=== PATIENT | female | born 1950 | race Caucasian/White ===

== ENCOUNTER 2020-06-03 12:13 | Emergency (ER) | payer MEDICARE, MEDICAID ==
[~2020-06-03] VITALS: Ht 162.6 cm; Wt 90.0 kg
[~2020-06-03 12:13] MED LIST: AMPH10TA23 PO; PANT-47 PO; THYR30TA2 PO; ZOLP5TAB8 PO
[2020-06-03] MEDS ORDERED: acetaminophen 325mg tablet PO ONE (12:20)
[2020-06-03] MEDS ORDERED: TRAM50TA2 PO (12:47)
[2020-06-03 13:46] VITALS: BP 136/49
== END 2020-06-03 13:47 | disposition home or self-care (01) ==
LOC: ER 12:14
DX: S42.224A 2-part nondisplaced fracture of surgical neck of right humerus, initial encounter for closed fracture (principal); S42.254A Nondisplaced fracture of greater tuberosity of right humerus, initial encounter for closed fracture; M25.511 Pain in right shoulder; Z87.11 Personal history of peptic ulcer disease; Z90.49 Acquired absence of other specified parts of digestive tract; Z90.710 Acquired absence of both cervix and uterus; Z79.899 Other long term (current) drug therapy; W19.XXXA Unspecified fall, initial encounter; Y93.89 Activity, other specified; Y92.89 Other specified places as the place of occurrence of the external cause; Y99.8 Other external cause status
CPT/HCPCS: 29105; 73030; 73630; 99284

== ENCOUNTER 2020-11-02 17:25 | Inpatient (IN) | payer MEDICARE, MEDICAID ==
[~2020-11-02] VITALS: Ht 170.2 cm; Wt 110.0 kg
[2020-11-02] MEDS ORDERED: ondansetron 4mg rapidly disintigrating tab PO ONE (18:25)
[2020-11-02 21:57] LABS: BASOPHILS # (AUTO) 0.2 X10'3 (0-0.2); BASOPHILS % (AUTO) 0.9 % (0-1); EOSINOPHILS % (AUTO) 0.2 % (0-6); HEMOGLOBIN 15.2 g/dl (12.0-16.0); LYMPHOCYTES # (AUTO) 1.1 X10'3 (1.1-4.8); LYMPHOCYTES % (AUTO) 6.6 % (21-51); MEAN CORPUSCULAR HEMOGLOBIN 29.5 PG (27.0-31.0); MEAN CORPUSCULAR HGB CONC 33.1 g/dL (33.0-36.5); MEAN CORPUSCULAR VOLUME 89.2 FL (78-98); MEAN PLATELET VOLUME 7.2 FL (7.4-10.4); MONOCYTES # (AUTO) 0.4 X10'3 (0-0.9); MONOCYTES % (AUTO) 2.7 % (2-12); NEUTROPHILS # (AUTO) 14.4 X10'3 (1.8-7.7); NEUTROPHILS % (AUTO) 89.6 % (42-75); PLATELET COUNT 277 X10'3 (140-440); RED BLOOD COUNT 5.15 X10'6 (4.20-5.60); WHITE BLOOD COUNT 16.1 X10'3 (4.5-11.0)
[2020-11-02 22:09] LABS: ALANINE AMINOTRANSFERASE 21 U/L (12-78); ALBUMIN 4.6 G/DL (3.4-5.0); ALBUMIN/GLOBULIN RATIO 1.2 (1.1-1.5); ALKALINE PHOSPHATASE 139 IU/L (46-116); ANION GAP 14 (8-16); ASPARTATE AMINO TRANSFERASE 16 U/L (10-37); BILIRUBIN,TOTAL 0.3 MG/DL (0.1-1.0); BLOOD UREA NITROGEN 18 MG/DL (7-18); BUN/CREATININE RATIO 15.9 (6.6-38.0); CALCIUM 9.8 MG/DL (8.5-10.1); CHLORIDE 98 MMOL/L (99-107); CREATININE 1.13 MG/DL (0.40-0.90); GLUCOSE 205 MG/DL (70-104); LIPASE 73 U/L (73-393); POTASSIUM 4.1 MMOL/L (3.5-5.1); SODIUM 137 MMOL/L (135-145); TOTAL CARBON DIOXIDE 24.8 MMOL/L (24-32); TOTAL PROTEIN 8.4 G/DL (6.4-8.2); eGFR 48 ML/MIN
[2020-11-02 23:04] LABS: CLARITY,URINE CLEAR (Clear); COLOR,URINE YELLOW (Yellow); GLUCOSE, URINE 100 mg/dl (Neg); KETONES,URINE 15 mg/dl (Neg); LEUKOCYTE ESTERASE ,URINE NEGATIVE (Neg); NITRITES, URINE NEGATIVE (Neg); OCCULT BLOOD,URINE NEGATIVE (Neg); PROTEIN,URINE 100 mg/dl (Neg); UROBILINOGEN,URINE 0.2 E.U/dL (0.2-1.0)
[2020-11-02 23:05] LABS: UA COLLECTION TYPE CLN CATCH MIDSTREAM
[2020-11-02 23:12] LABS: MUCUS STRANDS MANY /LPF (Neg); SQUAMOUS EPITHELIAL CELL,UR FEW /LPF (FEW)
[2020-11-02 23:13] LABS: BACTERIA,URINE NONE SEEN /HPF (Neg); HYALINE CASTS >30 /LPF (NEGATIVE); RBC,URINE NONE SEEN /HPF (0-2); WBC,URINE 0-4 /HPF (0-4)
[2020-11-02 23:20] LABS: PLATELET ESTIMATE NORMAL; TOTAL CELLS COUNTED 100
[2020-11-02] MEDS ORDERED: morphine 2 MG/ML inj. syringe IV PRN (23:35)
[2020-11-02] MEDS ORDERED: ondansetron/PF 4mg/2ml inj IV ONE (23:35)
[2020-11-02] MEDS ORDERED: piperacillin/tazo 3.375gm/50ml 50 ML IV ONE (23:35)
[2020-11-02] MEDS ORDERED: morphine 4 MG/ML inj SYRINge IV ONE (23:35)
[2020-11-02] MEDS ORDERED: normal saline 1000ML IV soln IV ONE (23:35)
[2020-11-03] VITALS (16 sets, daily range): BP systolic 101–134; BP diastolic 41–71
[2020-11-03 00:36] LABS: MAGNESIUM 2.1 MG/DL (1.5-2.4)
[2020-11-03 00:38] LABS: PARTIAL THROMBOPLASTIN TIME 25 SECONDS (22-32)
[2020-11-03] MEDS ORDERED: normal saline 1000ML IV soln IVB ONE (01:05)
[2020-11-03] MEDS ORDERED: ZOLP10TA (01:09)
[2020-11-03] MEDS ORDERED: ZOLP10TA PO (01:09)
[2020-11-03] MEDS ORDERED: BEPO10DR EACHEYE (01:09)
[2020-11-03] MEDS ORDERED: VORT20TA PO (01:09)
--- NOTE | 2020-11-03 01:11 | NUR ---
pt refused to get changed into hospital gown. pt requests to wear own clothes for the night and change into gown right before surgery.
[2020-11-03] MEDS ORDERED: acetaminophen 650mg rectal suppository RC PRN (01:15)
[2020-11-03] MEDS ORDERED: HYDROcodone/acetaminophen 5mg/325mg tablet PO PRN (01:15)
[2020-11-03] MEDS ORDERED: ondansetron 4mg rapidly disintigrating tab PO PRN (01:15)
[2020-11-03] MEDS ORDERED: diphenhydrAMINE 25mg capsule PO PRN (01:15)
[2020-11-03] MEDS ORDERED: bisacodyl 10mg suppository rectal RC PRN (01:15)
[2020-11-03] MEDS ORDERED: acetaminophen 325mg tablet PO PRN ×2 (01:15)
[2020-11-03] MEDS ORDERED: diphenhydrAMINE 50 mg/ml inj IV PRN (01:15)
[2020-11-03] MEDS ORDERED: morphine 2 MG/ML inj. syringe IV PRN ×3 (01:15→09:20)
[2020-11-03] MEDS ORDERED: ondansetron/PF 4mg/2ml inj IV PRN ×2 (01:15→09:20)
[2020-11-03] MEDS ORDERED: magnesium hydroxide 30ml (MOM) UD suspension PO PRN (01:15)
[2020-11-03] MEDS ORDERED: HYDROcodone/acetaminophen 10/325mg tab PO PRN (01:15)
[2020-11-03] MEDS ORDERED: mag hydrox/Alum hydrox/simeth 30ml oral suspension PO PRN (01:15)
[2020-11-03] MEDS ORDERED: LEVO15TA6 PO (01:36)
[2020-11-03] MEDS ORDERED: LAMO25TA5 PO (01:36)
[2020-11-03] MEDS ORDERED: LEVO100T PO (01:36)
[2020-11-03] MEDS ORDERED: LIOT5TAB10 PO (01:36)
[2020-11-03] MEDS ORDERED: BREX1TAB PO (01:36)
[2020-11-03 02:20] LABS: HEMOGLOBIN A1C 5.5 % (4.5-6.2)
[2020-11-03] MEDS: normal saline 1000ml 1,000 ML IV SCH ×3 (02:54→19:23)
[2020-11-03 05:55] LABS: URINE AMPHETAMINE SCREEN NEGATIVE (Neg); URINE BARBITUATE SCREEN NEGATIVE (Neg); URINE BENZODIAZEPINES SCREEN NEGATIVE (Neg); URINE CANNABINOID SCREEN NEGATIVE (Neg); URINE COCAINE SCREEN NEGATIVE (Neg); URINE METHADONE SCREEN NEGATIVE (Neg); URINE OPIATE SCREEN NEGATIVE (Neg); URINE PHENCYCLIDINE SCREEN NEGATIVE (Neg)
[2020-11-03] MEDS: ipratropium/albuterol 3ml nebule NEB SCH ×4 (06:52→23:03)
[2020-11-03] MEDS: BEPOTASTINE EACHEYE SCH ×2 (06:53→19:37)
[2020-11-03] MEDS: docusate sod 100mg capsule PO SCH ×2 (06:54→19:37)
[2020-11-03] MEDS: lamoTRIgine 25mg tablet PO SCH (06:55)
[2020-11-03] MEDS: liothyronine sod 5mcg tablet PO SCH (06:55)
[2020-11-03] MEDS: LEVOMEFOLATE 15 MG PO SCH (06:56)
[2020-11-03] MEDS: levoTHYROXINE 100mcg tablet PO SCH (06:56)
[2020-11-03] MEDS: pantoprazole 40 MG vial IV SCH (07:03)
[2020-11-03] MEDS ORDERED: voritoxetine HBr tablet 10 MG TABLET PO SCH (08:00)
[2020-11-03] MEDS ORDERED: sevoflurane 250ml liquid IH ONE (08:45)
[2020-11-03] MEDS ORDERED: famotidine/PF 10 mg/ml inj IV ONE (08:54)
[2020-11-03] MEDS ORDERED: midazolam 1 mg/ML 2ml injection ONE (08:56)
[2020-11-03] MEDS ORDERED: fentaNYL /PF 50mcg/ml 5ml ampule ONE (09:03)
[2020-11-03] MEDS ORDERED: labetalol 20mg/4ml (5mg/ml) syringe IV PRN (09:20)
[2020-11-03] MEDS ORDERED: proCHLORperazine 10 MG/2 ml inj IV PRN (09:20)
[2020-11-03] MEDS ORDERED: acetaminophen 1,000mg/100ml IV 100 ML IV PRN (09:20)
[2020-11-03] MEDS ORDERED: ringers solution, lacted 1,000 ML IV SCH (09:20)
[2020-11-03] MEDS ORDERED: HYDROmorphone/PF 0.2 MG/ML SYRINGE IV PRN ×2 (09:20)
[2020-11-03] MEDS ORDERED: meperidine/PF 25mg/ml syringe IV PRN (09:20)
[2020-11-03] MEDS ORDERED: morphine 4 MG/ML inj SYRINge IV PRN (09:20)
[2020-11-03] MEDS ORDERED: hydrALAZINE 20mg/ml inj. IV PRN (09:20)
[2020-11-03] MEDS ORDERED: LIDOcaine 2% (20mg/ml) 5ml vial ONE (09:28)
[2020-11-03] MEDS ORDERED: propofol inj 20 ML IV ONE (09:29)
[2020-11-03] MEDS ORDERED: rocuronium 10mg/ml inj IV ONE (09:29)
[2020-11-03] MEDS ORDERED: sugammadex 200mg/2ml injection IV ONE (09:41)
[2020-11-03] MEDS ORDERED: dexamethasone sod phosphate 4mg/ml inj. ONE (09:55)
[2020-11-03] MEDS ORDERED: ondansetron/PF 4mg/2ml inj ONE (09:55)
--- NOTE | 2020-11-03 10:05 | NUR ---
Received from OR via bed, accompanied by Anesthesiologist jenelle and report given by Anesthesiolgist. pt drowsy, oxygenating well on 10 lpm o2 via mask, no resp distress noted. denies pain or nausea, ngt to santino ray. fc patent, scds on. vss.
[2020-11-03] MEDS ORDERED: potassium Cl 40MEQ/1/2NS 520ml 520 ML IV PRN (10:10)
[2020-11-03] MEDS ORDERED: magnesium Cl slow-release 64mg tablet PO PRN (10:10)
[2020-11-03] MEDS ORDERED: magnesium 4gm in 100ml NS 100 ML IV PRN (10:10)
[2020-11-03] MEDS ORDERED: potassium Cl 20 mEq SR tablet PO PRN ×2 (10:10)
--- NOTE | 2020-11-03 11:00 | NUR ---
reported bloody ng output to dr rhodes, orders recd. ngt placemenent was confirmed.
--- NOTE | 2020-11-03 11:10 | NUR ---
RECEIVED REPORT FROM LUZ STAPLETON FROM RECOVERY
--- NOTE | 2020-11-03 11:15 | NUR ---
Report called to receiving nurse. Transferred via bed Belongings with pt, 1 bag of clothing. vss. pt continues to deny any pain. no nausea, ngt to cont low wall sx. transferred to ortho in stable condition. Special Issues communicated to receiving nurse.
[2020-11-03] MEDS: piperacillin/tazo 4.5gm/100ml 100 ML IV SCH ×2 (11:52→19:23)
[2020-11-03] MEDS: voritoxetine HBr tablet 5 MG TABLET PO SCH (11:52)
--- NOTE | 2020-11-03 18:43 | NUR ---
GAVE REPORT TO LUZ NOONAN
[2020-11-03] MEDS: HYDROmorphone inj. 0.5 MG/0.5 ML DISP.SYRIN IV PRN ×2 (19:28→23:46)
[2020-11-03] MEDS: K and/or MAG REPLACEMENT MC SCH (19:37)
[2020-11-03] MEDS: lactobacillus rhamnosus 10,000 MMU CELLS/CAPSULE PO SCH (19:37)
[2020-11-03] MEDS ORDERED: non-formulary drug (Zolpidem Tartrate (Ambien) 1 TAB) PO SCH (21:00)
[2020-11-03] MEDS ORDERED: temazepam 15mg capsule PO PRN (21:00)
[2020-11-04 01:00] VITALS: BP 136/60
[2020-11-04] MEDS: ipratropium/albuterol 3ml nebule NEB SCH ×3 (02:00→14:44)
[2020-11-04 06:23] LABS: BASOPHILS % (AUTO) 0.2 % (0-1); EOSINOPHILS % (AUTO) 0.4 % (0-6); HEMATOCRIT 35.8 % (35.0-45.0); LYMPHOCYTES % (AUTO) 29.9 % (21-51); MEAN CORPUSCULAR HGB CONC 33.6 g/dL (33.0-36.5); MEAN CORPUSCULAR VOLUME 89.4 FL (78-98); MONOCYTES # (AUTO) 0.7 X10'3 (0-0.9); MONOCYTES % (AUTO) 6.5 % (2-12); NEUTROPHILS # (AUTO) 6.4 X10'3 (1.8-7.7); PLATELET COUNT 186 X10'3 (140-440); RED CELL DISTRIBUTION WIDTH 14.2 % (11.5-14.5); WHITE BLOOD COUNT 10.2 X10'3 (4.5-11.0)
[2020-11-04 06:48] LABS: ALANINE AMINOTRANSFERASE 21 U/L (12-78); ALBUMIN 2.9 G/DL (3.4-5.0); ALBUMIN/GLOBULIN RATIO 1.1 (1.1-1.5); ALKALINE PHOSPHATASE 89 IU/L (46-116); ANION GAP 8 (8-16); ASPARTATE AMINO TRANSFERASE 17 U/L (10-37); BILIRUBIN,TOTAL 0.3 MG/DL (0.1-1.0); BLOOD UREA NITROGEN 11 MG/DL (7-18); BUN/CREATININE RATIO 14.3 (6.6-38.0); CALCIUM 8.1 MG/DL (8.5-10.1); CHLORIDE 111 MMOL/L (99-107); CREATININE 0.77 MG/DL (0.40-0.90); GLUCOSE 90 MG/DL (70-104); MAGNESIUM 2.1 MG/DL (1.5-2.4); POTASSIUM 3.8 MMOL/L (3.5-5.1); SODIUM 144 MMOL/L (135-145); TOTAL CARBON DIOXIDE 25.4 MMOL/L (24-32); TOTAL PROTEIN 5.6 G/DL (6.4-8.2); eGFR 74 ML/MIN
--- NOTE | 2020-11-04 06:56 | NUR ---
Patient in room ORTHO 4014B. I have received report from LUZ NOONAN and had the opportunity to ask questions and assume patient care.
[2020-11-04] MEDS: piperacillin/tazo 4.5gm/100ml 100 ML IV SCH (07:12)
[2020-11-04] MEDS: HYDROmorphone inj. 0.5 MG/0.5 ML DISP.SYRIN IV PRN (07:12)
[2020-11-04] MEDS: BEPOTASTINE EACHEYE SCH (08:00)
[2020-11-04] MEDS: levoTHYROXINE 100mcg tablet PO SCH (08:00)
[2020-11-04] MEDS: liothyronine sod 5mcg tablet PO SCH (08:00)
[2020-11-04] MEDS: voritoxetine HBr tablet 5 MG TABLET PO SCH (08:00)
[2020-11-04] MEDS: K and/or MAG REPLACEMENT MC SCH (08:00)
[2020-11-04] MEDS: lactobacillus rhamnosus 10,000 MMU CELLS/CAPSULE PO SCH (08:00)
[2020-11-04] MEDS: lamoTRIgine 25mg tablet PO SCH (08:00)
[2020-11-04] MEDS: docusate sod 100mg capsule PO SCH (08:00)
[2020-11-04] MEDS: LEVOMEFOLATE 15 MG PO SCH (08:00)
[2020-11-04] MEDS: normal saline 1000ml 1,000 ML IV SCH (09:42)
[2020-11-04] MEDS: pantoprazole 40 MG vial IV SCH (09:47)
[2020-11-04 10:00] VITALS: BP 119/55
--- NOTE | 2020-11-04 12:48 | NUR ---
DR. PLATT CONSULTED WITH PT, TOLD HER SHE COULD HAVE TINOCO AND NG REMOVED. RN REMOVED TINOCO AND NG WITH NO COMPLICATIONS. SHE IS NOW ON CLEAR LIQUIDS
--- NOTE | 2020-11-04 13:30 | NUR ---
GAVE REPORT TO LUZ SPENCER ON TELE. PT GOING TO ROOM 9057F
--- NOTE | 2020-11-04 15:22 | NUR ---
PT NOT GOING TO TELE NOW, GAVE REPORT TO LUZ MARTINO ON SURGICAL, PT GOING TO 360A
--- NOTE | 2020-11-04 16:16 | NUR ---
PAGER ID: [phone] MESSAGE: Surgical Gurwinder ESCOBAR ext [phone]. RE: Yoselyn Ceja. Patient eagerly wants to go home fredrick. She said she was already given clear liquid and tolerated it. She said she has BM already and passing gas.
[2020-11-04] MEDS ORDERED: HYDR-3965 PO (16:23)
[2020-11-04] MEDS ORDERED: AMOX-419 PO (16:23)
[2020-11-04] MEDS ORDERED: LACT1CAP26 PO (16:23)
--- NOTE | 2020-11-04 16:31 | NUR ---
I called Dr. Juarez on his cellphone to confirm that he is okay for this patient to be discharge today, he said to me "Yes, she can go home!"
--- NOTE | 2020-11-04 17:15 | NUR ---
Patient was discharged home, discharge instructions given to patient. Patient verbalized understanding of all instructions made. Peripheral IV catheter removed, tip intact. Instructed patient to ensure she has all her belongings with her before leaving.
== END 2020-11-04 17:10 | disposition home or self-care (01) | DRG 335 ==
LOC: ER 17:25 → ED HOLD 11-03 01:11 → ORTHO 4S 11-03 11:30 → SUR 3N 11-04 15:30
PROVIDERS: ADMIT Family Medicine; ATTEND Family Medicine
PROC: 0D9670Z Drainage of Stomach with Drainage Device, Via Natural or Artificial Opening (ICD-10-PCS; 2020-11-03)
PROC: 0DN84ZZ Release Small Intestine, Percutaneous Endoscopic Approach (ICD-10-PCS; principal; 2020-11-03 08:49)
DX: K56.50 Intestinal adhesions [bands], unspecified as to partial versus complete obstruction (principal); J18.9 Pneumonia, unspecified organism; N17.9 Acute kidney failure, unspecified; E03.9 Hypothyroidism, unspecified; E86.0 Dehydration; R82.4 Acetonuria; E88.81 Metabolic syndrome and other insulin resistance; I10 Essential (primary) hypertension; K56.2 Volvulus; Z20.822 Contact with and (suspected) exposure to COVID-19; Z82.49 Family history of ischemic heart disease and other diseases of the circulatory system; Z87.11 Personal history of peptic ulcer disease; Z90.49 Acquired absence of other specified parts of digestive tract; Z90.710 Acquired absence of both cervix and uterus; Z88.2 Allergy status to sulfonamides; Z83.3 Family history of diabetes mellitus; Z82.3 Family history of stroke; Z84.89 Family history of other specified conditions; Z79.899 Other long term (current) drug therapy
CPT/HCPCS: 36415; 71045; 74176; 80053; 80305; 81001; 83036; 83605; 83690; 83735; 83880; 84100; 84145; 84443; 84484; 85007; 85025; 85610; 85730; 86885; 86900; 86901; 87040; 87081; 87635; 93005; 94640; 94760; 96365; 96375; 99285; A4618; A7000; C1758; C9113; C9399; C9803; G0378; J1100; J1170; J2001; J2250; J2270; J2405; J2543; J2704; J3010; J3490; J7030; J7120

== ENCOUNTER 2022-06-07 09:40 | Day surgery (SDC) | payer MEDICARE, MEDICAID ==
[2022-05-31 14:44] LABS: BASOPHILS % (AUTO) 0.5 % (0-1); EOSINOPHILS # (AUTO) 0.2 X10'3 (0-0.9); EOSINOPHILS % (AUTO) 2.2 % (0-6); LYMPHOCYTES # (AUTO) 2.8 X10'3 (1.1-4.8); LYMPHOCYTES % (AUTO) 38.1 % (21-51); MEAN CORPUSCULAR HEMOGLOBIN 30.2 PG (27.0-31.0); MEAN CORPUSCULAR HGB CONC 33.9 g/dL (33.0-36.5); MEAN PLATELET VOLUME 7.5 FL (7.4-10.4); MONOCYTES # (AUTO) 0.6 X10'3 (0-0.9); MONOCYTES % (AUTO) 8.7 % (2-12); NEUTROPHILS # (AUTO) 3.7 X10'3 (1.8-7.7); NEUTROPHILS % (AUTO) 50.5 % (42-75); PRE OP HEMATOCRIT 38.6 % (35.0-45.0); PRE OP HEMOGLOBIN 13.1 g/dL (12.0-16.0); PRE OP PLATELET COUNT 279 X10'3 (140-440); RED BLOOD COUNT 4.34 X10'6 (4.20-5.60); RED CELL DISTRIBUTION WIDTH 12.9 % (11.5-14.5)
[2022-05-31 14:52] LABS: PRE OP INR 0.9 INR; PRE OP PROTIME 10.2 SECONDS (9.0-12.0)
[2022-05-31 14:55] LABS: ALBUMIN 4.1 G/DL (3.4-5.0); ALBUMIN/GLOBULIN RATIO 1.2 (1.1-1.5); ALKALINE PHOSPHATASE 98 IU/L (46-116); BLOOD UREA NITROGEN 14 MG/DL (7-18); BUN/CREATININE RATIO 21.2 (10.0-20.0); CALCIUM 9.6 MG/DL (8.5-10.1); CHLORIDE 103 MMOL/L (99-107); CREATININE 0.66 MG/DL (0.40-0.90); PRE OP ALT 22 U/L (30-65); PRE OP ANION GAP 9 (8-16); PRE OP AST 19 U/L (10-37); PRE OP BILIRUB, TOTAL 0.4 MG/DL (0.0-1.0); PRE OP GLUCOSE 97 MG/DL (70-104); PRE OP POTASSIUM 4.3 MMOL/L (3.4-5.1); PRE OP SODIUM 138 MMOL/L (135-145); TOTAL CARBON DIOXIDE 26.2 MMOL/L (24-32); TOTAL PROTEIN 7.5 G/DL (6.4-8.2); eGFR 89 ML/MIN
[~2022-06-07] VITALS: Ht 162.6 cm; Wt 82.8 kg
[2022-06-07] VITALS (15 sets, daily range): BP systolic 124–151; BP diastolic 61–80
[~2022-06-07 09:40] MED LIST changes: -AMPH10TA23 PO; +BEMP180T PO; +BREX1TAB PO; +DUTA0.5C36 PO; +LAMO25TA5 PO; +LEVO100T PO; +LIOT5TAB10 PO; -PANT-47 PO; -THYR30TA2 PO; +VORT20TA PO; +ZOLP10TA PO; -ZOLP5TAB8 PO; +cefazolin 2gm/D5W 100mL 100 ML IV ONE; +famotidine 20mg tablet PO ONE; +ringers solution, lacted 1,000 ML IV SCH
[2022-06-07] MEDS ORDERED: BUPIVAcaine/PF 2.5 mg/ml (0.25%) 30ml vial ONE (10:49)
[2022-06-07] MEDS ORDERED: fentaNYL/PF 50MCG/1 ML 2ML syringe ONE ×2 (11:05→11:26)
[2022-06-07] MEDS ORDERED: midazolam 1 mg/ML 2ml injection ONE (11:07)
[2022-06-07] MEDS ORDERED: LIDOcaine 2% (20mg/ml) 5ml vial ONE (11:36)
[2022-06-07] MEDS ORDERED: propofol inj 20 ML IV ONE (11:36)
[2022-06-07] MEDS ORDERED: ondansetron/PF 4mg/2ml inj ONE (11:36)
[2022-06-07] MEDS ORDERED: dexamethasone sod phosphate 4mg/ml inj. ONE (11:36)
--- NOTE | 2022-06-07 12:03 | NUR ---
Received from OR via [facility] TO [facility] ROOM 5, accompanied by Anesthesiologist DR DAWSON and report given by Anesthesiolgist. PT PRESENTS WITH PIV 20G LEFT HAND, CHEST BINDER CDI, VSS. Addendum: 06/07/22 at 1221 by Patrica Agudelo RN, RN Amended: Links added.
[2022-06-07] MEDS ORDERED: morphine 2 MG/ML inj. syringe IV PRN (12:15)
[2022-06-07] MEDS ORDERED: ringers solution, lacted 1,000 ML IV SCH (12:15)
[2022-06-07] MEDS ORDERED: ondansetron/PF 4mg/2ml inj IV PRN (12:15)
[2022-06-07] MEDS ORDERED: morphine 4 MG/ML inj SYRINge IV PRN (12:15)
[2022-06-07] MEDS ORDERED: proCHLORperazine 10 MG/2 ml inj IV PRN (12:15)
[2022-06-07] MEDS ORDERED: meperidine/PF 25mg/ml syringe IV PRN ×3 (12:15)
[2022-06-07] MEDS ORDERED: oxyCODONE/APAP 5-325mg tablet PO ONE (12:55)
--- NOTE | 2022-06-07 14:23 | NUR ---
ALL DISCHARGE CRITERIA HAS BEEN MET. VSS, PAIN AT A TOLERABLE LEVEL, VOIDING AND ABLE TO SAFELY AMBULATE AND TRANSFER SELF. IV TAKEN OUT WITHOUT ANY COMPLICATIONS. ALL DISCHARGE INSTRUCTIONS COVERED WITH PATIENT AND ALL QUESTIONS ANSWERED. PATIENT TAKEN OUT VIA WHEELCHAIR TO PERSONAL VEHICLE WHERE FAMILY/FRIEND DROVE PATIENT HOME. Addendum: 06/07/22 at 1444 by Patrica Agudelo RN, RN Amended: Links added.
== END 2022-06-07 14:23 | disposition home or self-care (01) ==
LOC: PRE-OP 09:40
PROVIDERS: ATTEND Surgery
DX: C50.211 Malignant neoplasm of upper-inner quadrant of right female breast (principal); Z79.01 Long term (current) use of anticoagulants; Z79.899 Other long term (current) drug therapy; Z90.710 Acquired absence of both cervix and uterus; Z90.49 Acquired absence of other specified parts of digestive tract; Z98.890 Other specified postprocedural states; G47.30 Sleep apnea, unspecified; F32.A Depression, unspecified; E03.9 Hypothyroidism, unspecified; M17.9 Osteoarthritis of knee, unspecified; Z88.2 Allergy status to sulfonamides; E78.5 Hyperlipidemia, unspecified
CPT/HCPCS: 19301; 36415; 80053; 82948; 85025; 85610; 85730; J0690; J1100; J2175; J2250; J2405; J2704; J3010; J3490; J7030; J7120; Z7506; Z7512; 88307; 88341; 88342; A4215; A4618; A6449; A7000

== ENCOUNTER 2025-01-18 17:42 | Emergency (ER) | payer MEDICARE, MEDICAID ==
[~2025-01-18] VITALS: Ht 162.6 cm; Wt 86.7 kg
[~2025-01-18 17:42] MED LIST changes: +LAMO-24 PO; -LAMO25TA5 PO; +ZOLP-679 PO; -ZOLP10TA PO; -cefazolin 2gm/D5W 100mL 100 ML IV ONE; -famotidine 20mg tablet PO ONE; -ringers solution, lacted 1,000 ML IV SCH
--- NOTE | 2025-01-18 18:51 | RADIOLOGY REPORT ---
CLINICAL HISTORY: eye injury; left eye injury/poking TECHNIQUE: CT exam of the facial bones was performed without intravenous contrast. This exam was performed according to our departmental dose optimization program. Up-to-date CT equipment and radiation dose reduction techniques are utilized as appropriate. CTDI [ 54.5 mGy ] DLP [ 2003.8 mGy.cm ] COMPARISON: None FINDINGS: There is no acute displaced fracture. There is streak artifact referable to dental hardware obscuring evaluation of the lower face. There are bilateral lens implants. There is no proptosis or retrobulbar stranding. A single locule of gas is seen along the margin of the left globe. The soft tissues are unremarkable. Visualized intracranial components are unremarkable. A nonspecific sclerotic lesion is seen in the C6 vertebral body. IMPRESSION: 1. No acute displaced fracture. 2. A single locule gas is seen about the left orbit, correlation with ophthalmologic examination is suggested. No retrobulbar stranding or proptosis. 3. Nonspecific sclerotic lesion is seen within the C6 vertebral body, possibly reflecting a bone island, though clinical correlation is suggested to exclude metastatic disease.
[2025-01-18] MEDS: proparacaine 0.5% ophthalmic drops 15ml EACHEYE ONE (18:57)
[2025-01-18] MEDS: fluorescein sod 1mg ophthalmic strip EACHEYE ONE (18:58)
--- NOTE | 2025-01-18 19:37 | Physician Documentation ---
History of Present Illness ~ Chief Complaint: Eye Pain Stated Complaint: L EYE PAIN Time Seen by MD: 18:25 Primary Medical Doctor: ANA Mode of Arrival: POV HPI This is a very pleasant 74-year-old female who presents for evaluation of potential traumatic injury to her left eye. She states that she was not dollars general, trying on glasses when a plastic ford tag from the glasses hit her sq in the left eye causing an immediate onset pain, foreign body sensation and subsequent rapid development of a blood-filled a lesion on the lateral aspect of the eye. She has not been able to elicit any palliating or aggravating factors. Does not take blood thinners. Did not attempt to treat it and came straight to the emergency department. Normally sees Dr. Norris Clinton as her certification engineer. Denies any vision changes. No concern for tobacco, alcohol or illicit substances use Medication Reconciliation Allergies: Coded Allergies: Sulfa (Sulfonamide Antibiotics) (Verified Allergy, Severe, swelling, rash, 01/18/25) Scheduled Bempedoic Acid (Nexletol), 1 TAB PO DAILY, (Reported) Brexpiprazole (Rexulti), 0.5 TAB PO DAILY, (Reported) Dutasteride (Dutasteride), 1 CAP PO DAILY, (Reported) Lamotrigine (Lamotrigine), 3 TAB PO DAILY, (Reported) Levothyroxine Sodium (Synthroid), 1 TAB PO DAILY, (Reported) Liothyronine Sodium (Liothyronine Sodium), 1 TAB PO DAILY, (Reported) Vortioxetine Hydrobromide (Brintellix), 1 TAB PO DAILY, (Reported) Zolpidem Tartrate (Ambien), 1 TAB PO HS, (Reported) Past Medical History Past Medical History: Peptic Ulcer Disease, Thyroid (unspecified) Past Surgical History: cholecystectomy, hysterectomy Patient History: (CVA) Cerebrovascular accident GRANDFATHER OR GRANDMOTHER (Cancer) Malignant carcinoid tumor FATHER (AGE 86) (DM Type 2) Diabetes mellitus type 2 MOTHER (60 YR) (TIA) Transient ischemic attack MOTHER (86 YR) GRANDFATHER OR GRANDMOTHER (GRANDMOTHER ) Asthma FATHER (CHILDHOOD) No Family History of: (CABG) Coronary artery bypass grafting (CAD) Coronary arteriosclerosis (CHF) Congestive heart failure (COPD) Chronic obstructive lung disease (DM Type1) Diabetes mellitus type 1 ([place]) Myocardial infarction (PVD) Peripheral vascular disease Alzheimer's disease Aortic aneurysm Cardiac arrest Other Past Family History: [place] Alcohol Use: None Drug Use: none Lives In: Home Review of Systems ROS 10 point review of systems was performed and unless noted above in HPI is negative for acute process/complaint. Physical Exam Vital Signs: Temperature: 98.3, Source: Oral, Heart Rate: 76, Respiratory Rate: 18, BP: 158/65, Pulse Oximetry: 96, Weight: 86.700 Oxygen Flow Rate: 0 Physical Exam Physical examination: GENERAL: Awake, alert, oriented, GCS 15, no apparent distress, non-toxic appearing, answers questions, follows commands appropriately. Examined in bed 4. HEENT: Atraumatic, normocephalic, pupils equal, extraocular muscles intact Active gross movements, sclerae anicteric, mucus membranes moist, no stridor. NECK: Midline, no JVD CARDIOVASCULAR: Good skin perfusion without evidence of pallor, mottling. PULMONARY: Nonlabored, symmetric chest rise, no audible wheezing, no accessory muscle use, no respiratory distress, speaking in full sentences. GASTROINTESTINAL: Not distended. NEUROLOGIC: Lucid with normal mental status. Normal facial symmetry. Moves all extremities symmetrically and with purpose. No truncal ataxia. Speech is fluid without evidence of dysarthria or aphasia, no focal deficits appreciated. EXTREMITIES: Acute deformities Skin: warm, dry PSYCHIATRIC: Normal affect, normal insight, normal concentration. Focused exam: [Left eye examined. There is a large chemotic subconjunctival hemorrhage that takes up the entire lateral aspect of bulbar conjunctiva. It does not not cross limbus and there is no limbal involvement. Anterior chamber is clear, there is no hypopyon or hyphema. Extraocular range of motion intact. Eyelids were everted, there was no foreign body. Fluorescein examination notable for small area of uptake at 5:00 a.m. right at the edge of the iris. Negative Dorys sign. Visual acuity preserved.] Visual Acuity : Eye Location: Bilateral Vision Acuity Degree: 20/25 Correction: Uncorrected Progress Results/Orders Results/Orders Orders - GABE STOUT DO Ct Facial Bones/Soft Tissue (01/18/25 18:15) Completed Orders - GABE STOUT DO Proparacaine Ophth Solution (Alcaine Oph (01/18/25 18:15) Fluorescein 1mg Ophthal Strip (Ful-Denisse O (01/18/25 18:15) Ct Facial Bones/Soft Tissue (01/18/25 18:15) Medications Received in ER Medications (Trade) Dose Ordered Sig/Lauren Route PRN Reason Start Time Stop Time Status Last Admin Dose Admin (Alcaine ophth solution) 2 drop ONCE ONCE EACHEYE 01/18/25 18:15 01/18/25 18:17 DC 01/18/25 18:57 2 DROP (Ful-Denisse ophth strip) 1 mg ONCE ONCE EACHEYE 01/18/25 18:15 01/18/25 18:17 DC 01/18/25 18:58 1 MG Vital Signs 01/18/25 01/18/25 17:46 19:15 Temp 98.3 98.3 Pulse 83 76 Resp 18 18 B/P (MAP) 180/75 158/65 (96) Pulse Ox 96 96 O2 Flow Rate 0 0 EKG/XRAY/CT/US/VASC/MRI CT : Interpreted By: self, radiologist Impression [place] [id number] CAT SCAN Patient: DAMION BEARDEN Medical Record: [id number] ELIZABETH EDGEWOOD : 1950, Age: 74 Sex: Female Location: ER Patient Status: REG ER Service Date/Time: 01/18/251814 Ordering Physician: GABE STOUT DO Exam: CT FACIAL BONES/SOFT TISSUE CLINICAL HISTORY: eye injury; left eye injury/poking TECHNIQUE: CT exam of the facial bones was performed without intravenous contrast. This exam was performed according to our departmental dose optimization program. Up-to-date CT equipment and radiation dose reduction techniques are utilized as appropriate. CTDI [ 54.5 mGy ] DLP [ 2003.8 mGy.cm ] COMPARISON: None FINDINGS: There is no acute displaced fracture. There is streak artifact referable to dental hardware obscuring evaluation of the lower face. There are bilateral lens implants. There is no proptosis or retrobulbar stranding. A single locule of gas is seen along the margin of the left globe. The soft tissues are unremarkable. Visualized intracranial components are unremarkable. A nonspecific sclerotic lesion is seen in the C6 vertebral body. IMPRESSION: 1. No acute displaced fracture. 2. A single locule gas is seen about the left orbit, correlation with ophthalmologic examination is suggested. No retrobulbar stranding or proptosis. 3. Nonspecific sclerotic lesion is seen within the C6 vertebral body, possibly reflecting a bone island, though clinical correlation is suggested to exclude metastatic disease. Electronically Signed by:MALU ROSS MD Date & Time: 01/18/251848 Dictated by: MALU ROSS MD Dictation date and time: 01/18/251848 Primary Care Provider: NO PRIMARY CARE PROVIDER cc: GABE STOUT DO ~ Medical Decision Making Additional information obtaine: N/A Findings Facility Status: ED Holds, RME process The plan was discussed with the patient, who demonstrates clear understanding of the plan and is in agreement with the plan unless otherwise noted in the chart. All questions have been answered, all concerns were addressed unless otherwise documented. I was available throughout their ED stay for frequent reassessment and questions. Differential Diagnoses (considered and possible or likely): [Subconjunctival hemorrhage, corneal abrasion, corneal ulcer, eye foreign body, some what concern for perforated globe but not very high in differential. Retinal detachment, retinal hemorrhage, vitreous hemorrhage and vitreous detachment to also been considered as a part of differential diagnosis. Clinically not consistent with a preseptal cellulitis or orbital cellulitis.] ??Differential Diagnoses (considered and unlikely, not requiring evaluation currently): [See above] MDM Data Please see HPI for the following: Independent Historians and external Records Review. Historian: [Patient] Independent Historians: ?[None] Medication Management: [Reviewed medication list] Social History and determinants: [Reviewed] Please see the body of the note for the following: Any independent interpretations of ECG, imaging studies. All vitals signs/haemodynamics, ordered tests were independently reviewed and interpreted by myself. Nursing triage complaint and vitals reviewed, additional nursing notes were reviewed as available and I agree unless otherwise noted or documented in contradiction in the chart Vital Signs: Independently reviewed Labs: Independently interpreted Imaging: Independently interpreted Old Medical Records: Independently reviewed, see HPI for relevant summary and information Additionally notably showing: [Hemodynamically stable. A CT shows no evidence of perforated globe. On my independent interpretation, globes are intact, lens implants noted, Small amount of air under the eyelid no proptosis, no retrobulbar hematoma. Radiology formal interpretation confirms.] Tests considered but not ordered include: [Hematologic workup has been considered but does not appear to be necessary given mechanical nature of the injury.] Social Determinants of Health Impact: Patient was evaluated in [facility], [facility] [place] to healthcare due to below par ratio of patient to medical providers. [] Comorbid Conditions Impacting Present Evaluation and Care/Treatment: [None] Management Discussions with other Healthcare Providers: [None, ophthalmology c onsultation is not available at this facility] Treatment and Disposition Medication Management (Given or considered): [Pain management]. See EMR for details Consideration for Hospitalization/Escalation/Deescalation of Care: Admission for observation has been considered, [however the patient is able to tolerate p.o., their symptoms are controlled, they are able to rely on oral medications, and their chief complaint/diagnosis can be managed on outpatient basis.] ?ED Course:?[Preserved visual acuity, consistent with a subconjunctival hematoma.] ?Shared decision making:?[Patient is hemodynamically stable for discharge home with follow with their primary care provider. [ ] Specific and cautious return precautions provided and discussed with full understanding. Any incidental findings were also discussed and follow up recommendations given. [] All questions answered. Patient/family were able to verbalize back return precautions. Patient/family agree to plan. Copies of imaging and laboratory studies were provided.] Code status:?FULL Please see the full Electronic Medical Record for full details of nursing documentation, medications list, other records of complete past medical history and conditions, vital signs, laboratory studies, and any radiologic study int erpretations by radiologists. Portions of this note were completed using [employer] dictation software and as a result there may exist minor errors in spelling. I have reviewed elements of past family and social history and agree as included in note. Ear Diff. Dx: Considerations: Unlikely: Other Eye Diff. Dx: Considerations: Include: Other (See body of main note for differential diagnosis) Nose Diff. Dx: Considerations: Unlikely: Other Tooth Diff. Dx: Considerations: Unlikely: Other Throat Diff Dx: Considerations: Unlikely: Other Departure Disposition: 01 HOME / SELF CARE / HOMELESS Impression: Primary Impression: Corneal abrasion Additional Impression: Subconjunctival hemorrhage Condition: Improved Discharge Instructions: Subconjunctival Hemorrhage Referrals: NORRIS CLINTON 2 days Follow-up with the certification engineer of your choice Prescriptions Ofloxacin Opth.* (Ofloxacin Opth.*) 5 Ml Bottle 1-2 DRP EACHEYE Q4H for 7 Days, #5 ML EVERY 4 HOURS WHILE AWAKE. Prov: GABE STOUT DO 01/18/25 Education Educated: Patient Educated regarding: diagnosis, treatment, prognosis, need for follow up Signature Scribe Signature: No scribe Attestation: Date: Jan 18, 2025 Time: 19:40 This note accurately reflects clinical decisions, work performed by myself, DO GIRISH Baez NICHOLAS M DO Jan 18, 2025 19:37
[2025-01-18] MEDS ORDERED: OFLO5DRO EACHEYE (19:39)
[2025-01-18 19:42] VITALS: BP 158/65; PULSE 74; RESP 18; TEMP 98.3; O2SAT 95
== END 2025-01-18 19:50 | disposition home or self-care (01) ==
LOC: ER 17:43
DX: S05.02XA Injury of conjunctiva and corneal abrasion without foreign body, left eye, initial encounter (principal); H11.32 Conjunctival hemorrhage, left eye; J45.909 Unspecified asthma, uncomplicated; E11.9 Type 2 diabetes mellitus without complications; Z87.11 Personal history of peptic ulcer disease; Z88.2 Allergy status to sulfonamides; Z90.710 Acquired absence of both cervix and uterus; Z90.49 Acquired absence of other specified parts of digestive tract; Z79.899 Other long term (current) drug therapy; X58.XXXA Exposure to other specified factors, initial encounter; Y93.89 Activity, other specified; Y92.89 Other specified places as the place of occurrence of the external cause; Y99.8 Other external cause status
CPT/HCPCS: 70486; 99284; J3490